=== PATIENT | female | born 1970 | race Caucasian/White ===

== ENCOUNTER 2019-11-25 13:49 | Emergency (ER) | payer OTHER ==
[~2019-11-25] VITALS: Ht 162.6 cm; Wt 49.9 kg
[2019-11-25] MEDS ORDERED: BACTRIM DS TAB1 EAC1 PO (14:31)
[2019-11-25 14:39] VITALS: BP 134/74
== END 2019-11-25 14:40 | disposition home or self-care (01) ==
LOC: M.ERS 13:49
DX: L03.114 Cellulitis of left upper limb (principal); L03.115 Cellulitis of right lower limb; G20 Parkinson's disease; Z88.8 Allergy status to other drugs, medicaments and biological substances